=== PATIENT | male | born 2000 | race African-American/Black ===

== ENCOUNTER 2018-05-24 12:20 | Emergency (ER) | payer MEDICAID ==
[~2018-05-24] VITALS: Ht 193 cm; Wt 120.0 kg
[2018-05-24] MEDS ORDERED: ALBU18HF INH (12:56)
[2018-05-24] MEDS ORDERED: KETOROLAC 30 MG/1 ML ONE (13:08)
[2018-05-24] MEDS ORDERED: ACETAMINOPHEN 500 MG TABLET ONE (13:08)
[2018-05-24] MEDS ORDERED: DEXAMETHASONE 4 MG/ML, 5ML ONE (13:08)
[2018-05-24] MEDS ORDERED: SODIUM CHLORIDE 0.9% 1,000ML IVBOLUS ONE (14:00)
[2018-05-24] MEDS ORDERED: KETOROLAC 30 MG/1 ML IVPush ONE (14:00)
[2018-05-24] MEDS ORDERED: ACETAMINOPHEN 500 MG TABLET PO ONE (14:00)
[2018-05-24] MEDS ORDERED: SODIUM CHLORIDE FLUSH 10ML SYR IVF ONE (14:00)
[2018-05-24] MEDS ORDERED: DEXAMETHASONE 4 MG/ML, 1ML IVPush ONE (14:00)
[2018-05-24 14:37] VITALS: BP 133/78
== END 2018-05-24 14:59 | disposition home or self-care (01) ==
LOC: ED 14:30
DX: J02.0 Streptococcal pharyngitis (principal)
CPT/HCPCS: 96374; 96375; 99284; J1100; J1885; J7030